=== PATIENT | female | born 1990 | race Hispanic/Latino ===

== ENCOUNTER 2020-09-27 19:15 | Inpatient (IN) | payer BC ==
[~2020-09-27 19:15] MED LIST: Bupivacaine 0.25% HCL 30 ML VIAL ONE; Bupivacaine HCl 0.25%/Epi 0.0005/PF 10 ML VIAL FS ONE; Lidocaine 2% PF 5 ML VIAL ONE; Terbutaline Sulfate 1 MG/ML VIAL ONE
[2020-09-27] MEDS ORDERED: Diphenoxylate HCl/Atropine Tablet PO PRN (20:50)
[2020-09-27] MEDS ORDERED: hydrALAZINE 20 MG/ML VIAL SLOW IVP PRN (20:50)
[2020-09-27] MEDS ORDERED: Promethazine HCl 25 MG/ML VIAL IM PRN (20:50)
[2020-09-27] MEDS ORDERED: Ibuprofen 800 MG TAB PO PRN (20:50)
[2020-09-27] MEDS ORDERED: Zolpidem Tartrate 5 MG TAB PO PRN (20:50)
[2020-09-27] MEDS ORDERED: Carboprost 250 MCG/ML AMP IM PRN (20:50)
[2020-09-27] MEDS ORDERED: Acetaminophen 500 MG TAB PO PRN (20:50)
[2020-09-27] MEDS ORDERED: HYDROcodone/Acetaminophen 5/325 mg Tablet PO PRN (20:50)
[2020-09-27] MEDS ORDERED: NS / Oxytocin 40 units/1000ml 1,000 ML IV PRN (20:50)
[2020-09-27] MEDS ORDERED: Methylergonovine 0.2 MG/ML VIAL IM PRN (20:50)
[2020-09-27] MEDS ORDERED: Ondansetron PF 4 MG/2 ML Vial IVP PRN (20:50)
[2020-09-27] MEDS ORDERED: Butorphanol Tartrate 1 MG/ML VIAL SLOW IVP PRN (20:50)
[2020-09-27] MEDS ORDERED: Misoprostol 200 MCG TAB PR PRN (20:50)
[2020-09-27] MEDS ORDERED: Lidocaine 1% (PF) 30 ML VIAL SC PRN (20:50)
[2020-09-27] MEDS ORDERED: NS w/ Oxytocin 30 units 500 ML IVPB SCH (21:00)
[2020-09-27] MEDS: Lactated Ringer's 1,000 ML IV SCH (21:00)
[2020-09-27] MEDS ORDERED: Penicillin G Potassium 5 MILL.UNITS in Sodium Chloride 0.9% 100 ML IVPB SCH (21:00)
[2020-09-27 21:07] VITALS: BMI 34.9
[2020-09-27] MEDS: Misoprostol 100 MCG TAB VAG SCH (21:30)
[2020-09-27 21:55] LABS: Hemoglobin 11.3 g/dL (12.0-16.0); Mean Corpuscular HGB CONC 33.8 g/dL (32.0-36.0); Mean Corpuscular Hemoglobin 26.9 pg (27.0-31.0); Mean Corpuscular Volume 79.4 fL (78.0-98.0); Mean Platelet Volume 9.9 fL (7.4-10.4); Platelet Count 187 thou/uL (130-400); RBC Distribution Width 13.2 % (11.5-14.5); Red Blood Cell (RBC) Count 4.22 mill/uL (4.20-5.40); White Blood Cell (WBC) Count 11.1 thou/uL (4.8-10.8)
[2020-09-27 22:35] LABS: Syphilis Antibody Nonreactive (Nonreactive); Syphilis Antibody Index 0.04 S/CO (<1.00 Non-Reactive)
[2020-09-28] MEDS: Misoprostol 100 MCG TAB VAG SCH ×4 (00:30→13:28)
[2020-09-28] MEDS: Penicillin G 2.5 MILL.units 2.5 MILL.UNITS in Premix Bag 1 BAG IVPB SCH ×3 (01:03→13:28)
[2020-09-28 01:16] LABS: HBSAg Index 0.16 S/CO (0-0.99); Hep B Surf Ag Non-Reactive S/CO (NonReactive)
[2020-09-28] MEDS ORDERED: Fentanyl 4 mcg/Bup 0.1% Cadd 100 ML ONE (03:52)
[2020-09-28] MEDS: Lactated Ringer's 1,000 ML IV SCH (05:01)
[2020-09-28] MEDS ORDERED: diphenhydrAMINE 50 MG/ML VIAL IVP PRN ×2 (05:34→14:49)
[2020-09-28] MEDS ORDERED: ePHEDrine 50 MG/ML VIAL SLOW IVP PRN (05:34)
[2020-09-28] MEDS ORDERED: Lactated Ringer's 500 ML IV PRN (05:34)
[2020-09-28] MEDS ORDERED: Promethazine HCl 25 MG/ML VIAL IM PRN ×2 (05:34→14:49)
[2020-09-28] MEDS ORDERED: Ondansetron PF 4 MG/2 ML Vial IVP PRN ×3 (05:34→14:49)
[2020-09-28] MEDS ORDERED: Naloxone HCl 0.4 mg/ml Vial IVP PRN ×4 (05:34→14:49)
[2020-09-28] MEDS ORDERED: Acetaminophen 325 MG TAB PO PRN (05:34)
[2020-09-28] MEDS ORDERED: Communication Order-Pharmacy FS SCH ×2 (05:45→15:00)
[2020-09-28] MEDS ORDERED: Fentanyl 4 mcg/Bupivacaine 0.1% Cassette 100 ML EPIDURAL SCH (05:45)
[2020-09-28] MEDS ORDERED: Azithromycin 500 MG VIAL ONE (09:07)
[2020-09-28] MEDS ORDERED: Lidocaine 2% 10 ML INJ ONE ×2 (09:14→09:25)
[2020-09-28] MEDS ORDERED: Morphine PF 10 MG/10 ML VIAL ONE (09:19)
[2020-09-28] MEDS ORDERED: Oxytocin 10 UNITS/ML VIAL ONE ×2 (09:19→09:20)
[2020-09-28] MEDS ORDERED: PHENYLEPHRINE-NS 100 MCG/ML 10 ML SYRINGE ONE (09:20)
[2020-09-28] MEDS ORDERED: Phenylephrine 40 MG/NS 250 ML 250 ML ONE (09:20)
--- NOTE | 2020-09-28 09:24 | PDOC.LDHP ---
Labor and Delivery H&P Chief complaint: scheduled induction HPI: 29yo at 40w3d by LMP here for elective IOL. s/p cytotec x 2 overnight, SROM, mec, epidural in place Current gestational age (weeks): 40 Due date: 09/25/20 Dating criteria: last menstrual period Grav: 2 Para: 1 Current complications: none Abnormal US findings: No Past Medical History: denies Current medications: pre-garth vitamins Allergies/Adverse Reactions: Allergies Allergy/AdvReac Type Severity Reaction Status Date / Time kiwi Allergy Intermediate Swollen Verified 09/27/20 20:56 Lips Social history: none - Physical Exam Vital signs reviewed and normal: yes General: NAD Heart: RRR Lungs: CTAB Abdomen: gravid Extremeties: no edema FHT: category 2, early decelerations, late decelerations [place] contractions every: 2min - Vaginal Exam cm dilated: 4 Effacement: 90% Station: -2 - OB Labs Blood type: O RH: positive Antibody Screen: negative HIV: negative RPR: negative HEPSAg: negative 1 hour GCT: negative GBS: positive Urine drug screen: negative Rubella: immune - Assessment L&D Assessment: elective induction at term - Plan Plan: admit to L&D, cervical ripening, GBS antibiotic prophylaxis, informed consent obtained, anesthesia consult for pain management
--- NOTE | 2020-09-28 09:26 | PDOC.LDPN ---
Labor & Delivery Progress Note - Subjective Subjective: comfortable - Objective Vital signs reviewed and normal: yes General: NAD Uterine fundus: non tender Dilation: 5 FHT: category 2, late decelerations, absent or minimal variables (prolonged decel x 10min to 60s) [place] contractions every: 3min Resuscitative measures: amniofusion, maternal oxygen, maternal IV fluids, maternal position change, other (terb) Plan: resuscitative measures (baby recovered to 130s with mod carmen and accel, 1 additional chance but if persistent decels will do CS)
--- NOTE | 2020-09-28 09:27 | PDOC.LDPN ---
Labor & Delivery Progress Note - Subjective Subjective: comfortable - Objective Vital signs reviewed and normal: yes General: NAD Uterine fundus: non tender Dilation: 5 Effacement: 75% Station: -1 FHT: category 2 [place] contractions every: 5min -: Dispo for PCS for NRFHT remote from delivery. R/B d/w pt and she wishes to proceed.
[2020-09-28 09:52] LABS: Actual Bicarbonate (HCO3a) 19.4 mEq/L (22-28); Base Excess (BEa) -8.1 mEq/L (-2.0 to +3.0)
[2020-09-28 09:55] LABS: Actual Bicarbonate (HCO3v) 18 mEq/L (22-28); Base Excess -6.7 mEq/L (-2.0 to +3.0); pH (Cord, venous) 7.33 (7.32-7.43)
--- NOTE | 2020-09-28 10:03 | PDOC.OPDEL ---
OB Operative/Delivery Note Delivery Dr/Surgeon: Talisha Assist: Gary Pre-Delivery Diagnosis: non-reassuring tracing Procedure/Post Delivery Dx: primary low transverse CS Weeks gestation: 40 Anesthesia: epidural - Findings A Sex: male - Additional Findings/Plan Placenta delivered: spontaneous findings: low transverse hysterotomy without extension, normal uterus, normal tubes, normal ovaries Estimated blood loss: 350 Compilations/Other Findings: body cord, asynclitism Post delivery plan: routine recovery
--- NOTE | 2020-09-28 10:51 | OP ---
DATE OF PROCEDURE: 09/28/2020 PREOPERATIVE DIAGNOSES: 1. Intrauterine at 40 weeks and 3 days. 2. Non-reassuring heart tones. POSTOPERATIVE DIAGNOSES: 1. Intrauterine at 40 weeks and 3 days. 2. Non-reassuring heart tones. PROCEDURE PERFORMED: Primary low-transverse section via Pfannenstiel skin incision. ANESTHESIA: Epidural. LINING MACHINE OPERATOR SURGEON: Annie Vega MD. ESTIMATED BLOOD LOSS: 350 mL. COMPLICATIONS: None. DRAINS: Fisher catheter. PATHOLOGY: None. FINDINGS: Male infant, cephalic presentation, posterior asynclitism, body cord x1, thick meconium fluid. Apgars and weight are pending. Hysterotomy without extension. Normal uterus, ovaries, and tubes bilaterally. DESCRIPTION OF PROCEDURE: The patient was taken to the operating room, where epidural anesthesia was found to be adequate. The patient was prepped and draped in a sterile fashion in the dorsal supine position with a leftward tilt. After ensuring adequacy of anesthesia, a Pfannenstiel skin incision was made and carried down to the underlying subcutaneous tissue with a knife. The fascia was nicked in the midline with a knife and carried laterally with the Gomez scissors. The superior aspect of the fascia was tented with 2 Kochers and dissected off the rectus bluntly. The inferior aspect of the fascia was tented with 2 Kochers and dissected off the rectus down to the pubic symphysis with the Gomez scissors. The rectus was bluntly divided in the midline and the peritoneum was bluntly entered into and manually retracted. The Jose O retractor was placed and the lower uterine segment was incised in a transverse fashion and extended with a Yusuf maneuver. The infant's head was brought to the hysterotomy and delivered atraumatically with fundal pressure. The 's cord was clamped and handed to awaiting Luc Team. Cord blood and cord gas were obtained. Placenta was allowed to spontaneously deliver. The uterus was exteriorized, cleared of all clots and debris and placed back into the abdomen. The uterus was repaired with a #1 Monocryl in a running locking fashion. Hemostasis was noted. Irrigation of the pelvis and pericolic gutters was performed and suctioned. The Jose O retractor was removed. The rectus muscles were examined and noted to be hemostatic. The fascia was reapproximated with 0 PDS x2 sutures with excellent reapproximation. The subcutaneous tissue was irrigated and cauterized of any bleeders and reapproximated with a 2-0 plain gut in a running fashion. The skin was closed with a 4-0 Monocryl in a subcuticular fashion. Dermabond was applied as well as a pressure dressing. The patient tolerated the procedure well. Sponge, lap, and needle counts were correct x2. The patient was taken to recovery room in stable condition. The patient received Ancef 2 g and azithromycin 500 mg prior to the procedure. Job ID: [id number]
[2020-09-28] MEDS ORDERED: Meperidine HCl/PF 25 MG/ML VIAL ONE (12:09)
[2020-09-28] MEDS ORDERED: HYDROcodone/Acetaminophen 5/325 mg Tablet PO PRN (12:19)
[2020-09-28] MEDS ORDERED: Lanolin Ointment 7 GM TUBE TOP PRN (12:19)
[2020-09-28] MEDS ORDERED: hydrALAZINE 20 MG/ML VIAL SLOW IVP PRN (12:19)
[2020-09-28] MEDS ORDERED: diphenhydrAMINE 25 MG CAP PO PRN (12:19)
[2020-09-28] MEDS ORDERED: Bisacodyl 10 MG SUPP PR PRN (12:19)
[2020-09-28] MEDS ORDERED: Zolpidem Tartrate 5 MG TAB PO PRN (12:19)
[2020-09-28] MEDS ORDERED: Meperidine HCl/PF 25 MG/ML VIAL SLOW IVP SCH (12:30)
[2020-09-28] MEDS ORDERED: HYDROmorphone 2 MG/ML VIAL SLOW IVP PRN (14:49)
[2020-09-28] MEDS ORDERED: Naloxone HCl 0.4 mg/ml Vial IV PRN (14:49)
[2020-09-28] MEDS ORDERED: Promethazine HCl 25 MG SUPP PR PRN (14:49)
[2020-09-28] MEDS ORDERED: Meperidine HCl/PF 25 MG/ML VIAL SLOW IVP PRN (14:49)
[2020-09-28] MEDS ORDERED: Ondansetron HCl/PF 4 MG/2 ML Vial IVP PRN (14:49)
[2020-09-28] MEDS: Ibuprofen 800 MG TAB PO SCH ×2 (14:49→22:00)
[2020-09-28] MEDS ORDERED: L&D-Morphine 4 MG/ML VIAL SLOW IVP PRN (14:49)
[2020-09-28] MEDS ORDERED: Ketorolac Tromethamine 30 MG/ML VIAL IVP PRN (14:49)
[2020-09-28] MEDS ORDERED: Ketorolac Tromethamine 30 MG/ML VIAL IVP SCH (15:00)
[2020-09-28] MEDS: Ferrous Sulfate 325 MG TAB PO SCH (21:00)
[2020-09-28] MEDS: Docusate Calcium (SURFAK) 240 MG CAP PO SCH (21:26)
[2020-09-28] MEDS: Simethicone Chewable 80 MG TAB PO PRN (21:26)
[2020-09-29 05:26] LABS: Hemoglobin 9.4 g/dL (12.0-16.0); Mean Corpuscular Hemoglobin 26.8 pg (27.0-31.0); Mean Platelet Volume 8.7 fL (7.4-10.4); Platelet Count 130 thou/uL (130-400); RBC Distribution Width 13.4 % (11.5-14.5); Red Blood Cell (RBC) Count 3.51 mill/uL (4.20-5.40)
[2020-09-29] MEDS: Ibuprofen 800 MG TAB PO SCH ×3 (06:00→21:21)
[2020-09-29] MEDS: Prenatal Vitamin 1 TAB PO SCH (09:36)
[2020-09-29] MEDS: Ferrous Sulfate 325 MG TAB PO SCH ×2 (09:36→21:22)
[2020-09-29] MEDS: Docusate Calcium (SURFAK) 240 MG CAP PO SCH ×2 (09:36→21:22)
[2020-09-29] MEDS: Simethicone Chewable 80 MG TAB PO PRN (09:36)
[2020-09-29] MEDS ORDERED: Adacel (T-DAP) 0.5 ML SYRINGE IM ONE (12:19)
--- NOTE | 2020-09-29 19:48 | PDOC.PP ---
Post Progress Note Post Day #: 1 PO intake tolerated: yes Flatus: yes Ambulation: yes Vital Signs (12 hours) Temp Pulse Resp BP Pulse Ox 09/29/20 16:49 98.6 F 108 H 12 99/54 L 99 09/29/20 11:38 98.5 F 104 H 20 124/80 09/29/20 08:00 97.9 F 84 14 118/78 98 Weight Weight 185 lb - Physical Examination General: NAD Respiratory: non-labored breathing Abdominal: no distention, appropriately TTP Fundus firm & at: umb Skin: CS incision dry & intact Neurological: no gross focal deficits Psychiatric: normal affect Result Diagrams: 09/29/20 05:12 Additional Labs: Post Labs Hep Bs Antigen Non-Reactive S/CO (NonReactive) 09/27/20 21:36 Blood Type O POSITIVE 09/27/20 21:36 - Assessment/Plan POD1 s/p PCS VSSAF Postop anemia d/t surgical blood loss, asx, cont PNV on DC Met appropriate milestones Rh pos RImm Cont postop care, home tomorrow
[2020-09-30] MEDS: HYDROcodone/Acetaminophen 5/325 mg Tablet PO PRN ×3 (00:34→10:12)
[2020-09-30] MEDS: Ibuprofen 800 MG TAB PO SCH ×2 (05:47→13:48)
--- NOTE | 2020-09-30 06:18 | PDOC.PP ---
Post Progress Note Post Day #: 2 Subjective: Doing well, no concerns. . Tolerating po without n/v. Ambulating. Voiding and passing flatus. Lochia minimal. No fevers/chills, Cp, SOB, GUTIERREZ, vision changes. Eager for discharge home. Pain well-controlled. PO intake tolerated: yes Flatus: yes Ambulation: yes Vital Signs (12 hours) Temp Pulse Resp BP Pulse Ox 09/30/20 05:40 98.3 F 99 16 112/76 09/30/20 00:10 98.3 F 86 16 114/56 L 09/29/20 19:44 99.4 F 99 16 124/74 99 Weight Weight 83.915 kg - Physical Examination General: NAD (resting comfortably) Cardiovascular: no m/r/g, RRR Respiratory: clear to auscultation bilaterally Abdominal: + bowel sounds, no distention, appropriately TTP Fundus firm & at: below umbilicus Skin: CS incision dry & intact Neurological: no gross focal deficits Psychiatric: A&Ox3, normal affect Result Diagrams: 09/29/20 05:12 Additional Labs: Post Labs Hep Bs Antigen Non-Reactive S/CO (NonReactive) 09/27/20 21:36 Blood Type O POSITIVE 09/27/20 21:36 (1) delivery delivered Code(s): O82 - ENCOUNTER FOR DELIVERY WITHOUT INDICATION Status: Acute - Assessment/Plan 29yo @ 40.3wk s/p pLTCS for NRFHT, POD#2 #s/p pLTCS, POD#2 - c/s for NRFHT - Tolerated surgery well, no immediate complications, routine post course - Hb 11.3 -> 9.4, continue PO iron, lochia minimal - routine PP care - Anticipate discharge this morning PCP: Talisha Dispo: POD#2, routine PP care, no concerns. Discharge today.
--- NOTE | 2020-09-30 07:44 | PDOC.BPN ---
- Brief Progress Note Agree with plan for discharge. Patient evaluation completed. Vitals reviewed.
[2020-09-30 09:58] VITALS: BP 118/68; TEMP 98
[2020-09-30] MEDS: Prenatal Vitamin 1 TAB PO SCH (10:09)
[2020-09-30] MEDS: Ferrous Sulfate 325 MG TAB PO SCH (10:09)
[2020-09-30] MEDS: Docusate Calcium (SURFAK) 240 MG CAP PO SCH (10:09)
== END 2020-09-30 14:50 | disposition home or self-care (01) | DRG 787 ==
LOC: L&D 19:50 → 3SW 09-28 13:18
PROVIDERS: ADMIT Student in an Organized Health Care Education/Training Program; ATTEND Student in an Organized Health Care Education/Training Program
PROC: 10D00Z1 Extraction of Products of Conception, Low, Open Approach (ICD-10-PCS; principal; 2020-09-28)
DX: O76 Abnormality in fetal heart rate and rhythm complicating labor and delivery (principal); D62 Acute posthemorrhagic anemia; O77.0 Labor and delivery complicated by meconium in amniotic fluid; O48.0 Post-term pregnancy; O99.824 Streptococcus B carrier state complicating childbirth; Z3A.40 40 weeks gestation of pregnancy; Z37.0 Single live birth; O90.81 Anemia of the puerperium; O64.0XX0 Obstructed labor due to incomplete rotation of fetal head, not applicable or unspecified
CPT/HCPCS: 36415; 51702; 82805; 85027; 86780; 86850; 86900; 86901; 87340; J1885; J2001; J2175; J2270; J2540; J3105; J3490; Q0163; S0020